=== PATIENT | male | born 1995 | race Caucasian/White ===

== ENCOUNTER 2022-07-28 12:24 | Emergency (ER) | payer OTHER ==
[~2022-07-28] VITALS: Ht 175.3 cm; Wt 81.6 kg
[2022-07-28 12:27] VITALS: BP 144/70
[2022-07-28] MEDS ORDERED: CYCLOBENZAPRINE HCL 10 MG TABLET PO ONE (13:00)
[2022-07-28] MEDS ORDERED: KETOROLAC 60 MG VIAL (30MG/ML) IM ONE (13:00)
[2022-07-28] MEDS ORDERED: NAPR-1180 PO (13:08)
[2022-07-28] MEDS ORDERED: CYCL10TA16 PO (13:08)
== END 2022-07-28 13:15 | disposition home or self-care (01) ==
LOC: EDH 12:24
DX: M54.50 Low back pain, unspecified (principal)
CPT/HCPCS: 99283; 72100; 96372; J1885